=== PATIENT | female | born 2000 | race Two or more races ===

== ENCOUNTER 2018-01-19 15:01 | Inpatient (IN) ==
[2018-01-19] MEDS ORDERED: LACTATED RINGERS 250 ML IV ONE (15:16)
[2018-01-19] MEDS ORDERED: BUTORPHANOL 1 MG/ML VIAL IV PRN (15:16)
[2018-01-19] MEDS ORDERED: ONDANSETRON 4 MG/2 ML VIAL IV PRN (15:16)
[2018-01-19] MEDS ORDERED: MEPERIDINE 50 MG/1 ML VIAL IV PRN (15:16)
[2018-01-19] MEDS ORDERED: LACTATED RINGERS 1,000 ML IV PRN (15:16)
[2018-01-19] MEDS ORDERED: DINOPROSTONE VAG GEL 10 MG SYRINGE VAG ONE (15:22)
[2018-01-19 15:40] LABS: Basophils % 0.3 % (0.0-0.8); Eosinophils % 0.3 % (0.00-10.9); Hematocrit 28.3 VOL% (35.7-47.0); Immature Granulocytes % 2.8 %; Immature Granulocytes Absolute 0.44 #; Lymphocytes # 1.7 10*3/uL (1.4-4.0); Lymphocytes % 10.8 % (21.3-54.2); Mean Corpuscular HGB Conc 31.8 GM/DL (32-36); Mean Corpuscular Hemoglobin 29 PG (27-34); Mean Corpuscular Volume 91.9 FL (87-102); Mean Platelet Volume 9.8 FL (9.6-12.0); Monocytes # 1.8 10*3/uL (0.11-0.8); Monocytes % 11.4 % (1.7-12.7); Neutrophils # 11.7 10*3/uL (1.4-7.4); Neutrophils % 74.4 % (38.7-73.9); Platelet Count 179 T/CUMM (130-400); Red Blood Count 3.08 MC/CUMM (3.8-5.5); Red Cell Distribution Width 13.5 % (9.3-17.3); White Blood Count 15.8 T/CUMM (4-12)
[2018-01-19] MEDS: LACTATED RINGERS 1,000 ML IV SCH (15:43)
[2018-01-19 16:00] LABS: Albumin 2.8 G/DL (3.4-5.0); Bilirubin,Total 0.4 MG/DL (0.2-1.0); Calcium 8.3 MG/DL (8.5-10.1); Osmolality,Calculated 273.5 MOS/KG (273-304); Potassium 3.6 MMOL/L (3.5-5.1); Total Protein 6.9 G/DL (6.4-8.3); Uric Acid 3.1 MG/DL (2.6-6.0)
[2018-01-19] MEDS ORDERED: AMPICILLIN INJ 2,000 MG in SODIUM CHLORIDE 0.9% 100 ML IV ONE (20:00)
[2018-01-20] MEDS: AMPICILLIN INJ 1,000 MG in SODIUM CHLORIDE 0.9% 100 ML IV SCH ×5 (00:49→16:14)
[2018-01-20] MEDS ORDERED: OXYTOCIN/LR 20 UNIT/1,000 ML BAG IV SCH (02:00)
[2018-01-20] MEDS: LACTATED RINGERS 1,000 ML IV SCH (03:38)
[2018-01-20] MEDS ORDERED: CITRIC ACID/SODIUM CITRATE 30 ML UDCUP PO ONE (07:55)
[2018-01-20] MEDS ORDERED: LACTATED RINGERS 1,000 ML IV ONE (07:55)
[2018-01-20] MEDS ORDERED: FAMOTIDINE 20 MG/2 ML VIAL IV ONE (07:55)
[2018-01-20] MEDS ORDERED: PROMETHAZINE 25 MG/1 ML VIAL IM ONE (07:57)
[2018-01-20] MEDS ORDERED: hydrOXYzine HCL 25 MG/1 ML VIAL IM PRN ×2 (07:57→22:36)
[2018-01-20] MEDS ORDERED: diphenhydrAMINE 50 MG/1 ML VIAL IV PRN ×3 (07:57→22:36)
[2018-01-20] MEDS ORDERED: ePHEDrine 50 MG/ML AMP IV PRN (07:57)
[2018-01-20] MEDS ORDERED: fentaNYL 2 MCG/ROPIV 0.2% EPID 150 ML EPIDURAL SCH (08:00)
[2018-01-20 12:18] LABS: Apearance,Urine CLEAR (Clear); Bilirubin,Urine Negative (Negative); Blood, Urine Negative (Negative); Glucose,Urine (UA) Negative (Negative); Ketones,Urine Negative (Negative); Mucus,Urine Occasional /LPF (Occasional); Nitrite,Urine Negative (Negative); Protein,Urine Negative; RBC,Urine <1 /HPF (0-4); Squamous Epithelial Cell,Urine Occasional /HPF (0-10); Urine Color Yellow (Yellow); Urine Urobilinogen < 2.0 EU/DL (0.2-1.0); WBC,Urine <1 /HPF (0-6)
[2018-01-20] MEDS ORDERED: ceFAZolin 2,000 MG in PREMIX 1 EACH IV ONE (20:02)
[2018-01-20] MEDS ORDERED: OXYTOCIN/LR 30 UNIT/1,000 ML BAG IV ONE (20:05)
[2018-01-20] MEDS ORDERED: OXYTOCIN 10 UNIT/ML VIAL IM ONE (20:05)
[2018-01-20] MEDS ORDERED: RHO(D) IMMUNE GLOBULIN 300 MCG SYRINGE IM ONE (22:14)
[2018-01-20] MEDS ORDERED: IBUPROFEN 800 MG TABLET PO PRN (22:14)
[2018-01-20] MEDS ORDERED: ACETAMINOPHEN 325 MG TABLET PO PRN (22:14)
[2018-01-20] MEDS ORDERED: OXYTOCIN/LR 20 UNIT/1,000 ML BAG IV ONE (22:14)
[2018-01-20] MEDS ORDERED: ONDANSETRON 4 MG/2 ML VIAL IV PRN ×2 (22:14→22:36)
[2018-01-20] MEDS ORDERED: SIMETHICONE CHEW 80 MG TABLET PO PRN (22:14)
[2018-01-20 22:22] LABS: Cord Venous Blood HCO3 21.9 MMOL/L; Cord Venous Blood PCO2 44.8 MMHG; Cord Venous Blood PO2 29.6
[2018-01-20] MEDS ORDERED: LACTATED RINGERS 1,000 ML IV SCH ×2 (22:30→23:00)
[2018-01-20] MEDS ORDERED: MORPHINE 10 MG/10 ML VIAL ONE (22:31)
[2018-01-20] MEDS ORDERED: LIDOCAINE MPF 2% /EPI 20 ML VIAL ONE (22:32)
[2018-01-20] MEDS ORDERED: MORPHINE 10 MG/1 ML VIAL IV PRN (22:37)
[2018-01-20] MEDS ORDERED: SODIUM CHLORIDE 0.9% 1,000 ML IV SCH (23:00)
[2018-01-21] MEDS ORDERED: MEPERIDINE 25 MG/1 ML VIAL IV PRN (01:54)
[2018-01-21] MEDS ORDERED: MEPERIDINE 50 MG/1 ML VIAL IV PRN (01:54)
[2018-01-21] MEDS: ceFAZolin 1,000 MG in SYRINGE 1 EACH IV SCH ×2 (04:59→16:32)
[2018-01-21 06:40] LABS: Basophils % 0.3 % (0.0-0.8); Eosinophils % 0.1 % (0.00-10.9); Hematocrit 23.8 VOL% (35.7-47.0); Hemoglobin 7.7 GM/DL (12.0-16.0); Immature Granulocytes % 1.1 %; Immature Granulocytes Absolute 0.18 #; Lymphocytes # 1.4 10*3/uL (1.4-4.0); Lymphocytes % 8.6 % (21.3-54.2); Mean Corpuscular HGB Conc 32.4 GM/DL (32-36); Mean Corpuscular Hemoglobin 29 PG (27-34); Mean Corpuscular Volume 90.2 FL (87-102); Mean Platelet Volume 9.8 FL (9.6-12.0); Monocytes # 1.9 10*3/uL (0.11-0.8); Monocytes % 12.1 % (1.7-12.7); Neutrophils # 12.3 10*3/uL (1.4-7.4); Neutrophils % 77.8 % (38.7-73.9); Platelet Count 134 T/CUMM (130-400); Red Blood Count 2.64 MC/CUMM (3.8-5.5); Red Cell Distribution Width 13.7 % (9.3-17.3); White Blood Count 15.9 T/CUMM (4-12)
[2018-01-21] MEDS ORDERED: FERROUS SULFATE 325 MG TABLET PO SCH (09:00)
[2018-01-21] MEDS: MULTIVITAMIN (PRENATAL) TABLET PO SCH (09:04)
[2018-01-21] MEDS: DOCUSATE SODIUM 100 MG CAPSULE PO SCH ×2 (09:04→22:00)
[2018-01-21] MEDS: MAGNESIUM HYDROXIDE SUSP 30 ML UDCUP PO PRN ×2 (09:05→22:00)
[2018-01-21] MEDS ORDERED: SODIUM CHLORIDE 0.9% 1,000 ML IV PRN ×2 (09:21→11:05)
[2018-01-21 18:57] LABS: Hematocrit 34.2 VOL% (35.7-47.0); Hemoglobin 10.8 GM/DL (12.0-16.0)
[2018-01-21] MEDS: FERROUS SULFATE 325 MG TABLET PO SCH (22:00)
[2018-01-21] MEDS ORDERED: BISACODYL 10 MG SUPP RECTAL PRN (22:23)
[2018-01-22] MEDS ORDERED: PROMETHAZINE 25 MG/1 ML VIAL IM PRN (05:52)
[2018-01-22 06:16] LABS: Hematocrit 32.6 VOL% (35.7-47.0); Hemoglobin 10.9 GM/DL (12.0-16.0)
[2018-01-22 07:41] VITALS: BP 134/71
[2018-01-22] MEDS: MULTIVITAMIN (PRENATAL) TABLET PO SCH (09:40)
[2018-01-22] MEDS: DOCUSATE SODIUM 100 MG CAPSULE PO SCH (09:40)
[2018-01-22] MEDS: FERROUS SULFATE 325 MG TABLET PO SCH (09:41)
== END 2018-01-22 11:50 | disposition home or self-care (01) | DRG 540 ==
LOC: N.LDOUT 15:01 → N.LD 15:04 → N.OB 01-21 01:20
PROVIDERS: ADMIT Obstetrics & Gynecology; ATTEND Obstetrics & Gynecology
PROC: LDCSECT (ICD-10-PCS; 2018-01-20 20:30)